=== PATIENT | male | born 1980 | race Two or more races ===

== ENCOUNTER → 2025-01-31 | Outpatient (CLI) | payer MEDICAID, SELFPAY ==
--- NOTE | 2025-01-31 10:57 | XR_ITS ---
Examination: Fingers, right hand first digit 3 views Technique: AP, oblique, lateral views right hand first digit. Exam date and time: January 31, 2025, 1111 hours INDICATIONS: Right hand pain first digit 2 weeks FINDINGS: Mild osteoarthritis interphalangeal joint first digit No fracture or cortical bone destruction IMPRESSION: Mild osteoarthritis interphalangeal joint first digit
== END | disposition home or self-care (01) ==
PROVIDERS: PCP Family Medicine; Referring Provider Family Medicine; Visit Provider Family Medicine
DX: M19.041 Primary osteoarthritis, right hand (principal)
CPT/HCPCS: 73140